=== PATIENT | male | born 1950 | race Caucasian/White ===

== ENCOUNTER 2021-05-07 23:09 | Emergency (ER) | payer OTHER ==
[2021-05-07 23:17] VITALS: TEMP 97.8; BMI 26.6
[2021-05-08 01:32] LABS: BASO % 0.9 % (0-2.0); EOS % 1.4 % (0-4.5); HEMATOCRIT 48.4 % (35.4-49); HEMOGLOBIN 16.7 GM/dL (11.7-16.9); LYMPH % 19.9 % (8-40); MCHC 34.4 g/dl (32.0-35.9); MEAN CELL VOLUME 90.1 fl (80-96); MEAN PLT VOLUME 8.4 fl (7.5-11.1); MONO % 6.8 % (3.8-10.2); PLATELET COUNT 274 10^3/uL (134-434); RBC 5.37 M/mm3 (4.00-5.60); RDW 12.5 % (11.9-15.9); WHITE BLOOD COUNT 13.5 K/mm3 (4.0-10.0)
[2021-05-08 01:56] LABS: CALCIUM 10.1 mg/dL (8.5-10.1)
[2021-05-08 01:57] LABS: ALBUMIN 4.4 g/dl (3.4-5.0); BLOOD UREA NITROGEN 13.7 mg/dL (7-18)
[2021-05-08 02:00] LABS: CREATININE 0.7 mg/dL (0.55-1.3)
[2021-05-08 02:02] LABS: BILIRUBIN,TOTAL 1.5 mg/dL (0.2-1)
[2021-05-08] MEDS ORDERED: DIPHTH,PERTUSS(ACELL),TET 0.5 ML DISP.SYRIN IM ONE ×2 (02:44→03:00)
[2021-05-08 03:12] VITALS: BP 118/78; PULSE 98
== END 2021-05-08 03:16 | disposition home or self-care (01) ==
LOC: JER 23:09
PROC: 0HQ0XZZ Repair Scalp Skin, External Approach (ICD-10-PCS; principal; 2021-05-07)
PROC: 3E0234Z Introduction of Serum, Toxoid and Vaccine into Muscle, Percutaneous Approach (ICD-10-PCS; 2021-05-07)
DX: S01.81XA Laceration without foreign body of other part of head, initial encounter (principal)
CPT/HCPCS: 36415; 70450-TC; 70486-TC; 72125-TC; 80053; 80307; 85025; 99285-25